=== PATIENT | female | born 1995 | race Caucasian/White ===

== ENCOUNTER 2024-09-05 10:19 | Emergency (ER) | payer BC, OTHER ==
[~2024-09-05] VITALS: Ht 162.6 cm; Wt 58.5 kg
[2024-09-05 10:44] VITALS: BP 156/68; PULSE 70; RESP 20; TEMP 97.9; O2SAT 98
--- NOTE | 2024-09-05 11:08 | DVH ---
CLINICAL INDICATION: Trauma; R/o fracture TECHNIQUE: 3 radiographic views of the right ankle were obtained. Comparison: None FINDINGS/IMPRESSION: There is no evidence of acute fracture or dislocation. The visualized joint space is well maintained. The alignment is anatomical. There is no radiopaque foreign body.
--- NOTE | 2024-09-05 11:28 | ED.PDOC ---
Musculoskeletal HPI Comments 29-year-old female presents with a chief complaint of a possible fracture to the right ankle. Still able to bear weight Denies previous surgeries to the ankle Denies redness or swelling around the ankle Denies fever chills night sweats nausea vomiting Chief Complaint: Lower Extremity Time Seen by MD: 10:28 Primary Care Provider: NONE Reviewed Notes: Nurses Notes, Medications, Allergies Allergies: Coded Allergies: Shellfish Allergy (Verified Allergy, Unknown, 09/05/24) Information Source: Patient Mode of Arrival: Ambulatory Past Medical History PAST MEDICAL HISTORY: Denies Surgical History: Denies all surgeries BUGGY LOADER History: No Pertinent BUGGY LOADER History Family History Family History: Reviewed,noncontributory to illness Social History Smoker: Non-Smoker Alcohol: Denies ETOH Use Drugs: Denies Drug Use All Other Systems: Reviewed and Negative (PER HPI) Physical Exam General Appearance: No Apparent Distress, Normal HEENT: Normal ENT Inspection, Pharynx Normal, TMs Normal Neck: Full Range of Motion, Non-Tender, Normal, Normal Inspection Respiratory: Chest Non-Tender, Lungs Clear, No Accessory Muscle Use, No Respiratory Distress, Normal Breath Sounds Cardiovascular: No Murmur, No Gallop, Regular Rate/Rhythm Breast Exam: Deferred Gastrointestinal: No Organomegaly, Non Tender, No Pulsatile Mass, Normal Bowel Sounds, Soft Genitalia: Deferred Pelvic: Deferred Rectal: Deferred Extremities: No calf tenderness, Normal capillary refill, Normal inspection, Normal range of motion, Non-tender, No pedal edema Musculoskeletal : Apperance: Normal Neurologic: Alert, No Motor Deficits, Normal Affect, Normal Mood, No Sensory Deficits Cerebellar Function: Normal Reflexes: Normal Skin: Dry, Normal Color, Warm Lymphatic: No Adenopathy Was a procedure done? Was a procedure done?: No Differential Diagnosis EXT Differential Diagnosis: Fracture, Sprain, Dislocation X-Ray, Labs, Meds, VS Vital Signs Date Time Temp Pulse Resp B/P (MAP) Pulse Ox O2 Delivery O2 Flow Rate FiO2 09/05/24 10:44 97.9 70 20 156/68 (97) 98 97.9 PATIENT: LY ROLDANACCT: [id number]: [id number] : 1995 LOC: ER ROOM / BED: / AGE / SEX: 29 / F ADM STATUS: REG ER SERVICE 1028 ORDERING PHYSICIAN: NIKKI TIJERINA NP PROCEDURE(s): RANKL - R ANKLE 3 VIEW REASON: R/o fracture ORDER NUMBER(s): [id number], ACCESSION NUMBER(s): [id number] CLINICAL INDICATION: Trauma; R/o fracture TECHNIQUE: 3 radiographic views of the right ankle were obtained. Comparison: None FINDINGS/IMPRESSION: There is no evidence of acute fracture or dislocation. The visualized joint space is well maintained. The alignment is anatomical. There is no radiopaque foreign body. ATED BY: MUMTAZ RIVERA MD DICTATED DATE/TIME: 09/05/24 110 SIGNED BY: MUMTAZ RIVERA MD SIGNED DATE/TIME: 09/05/241105 CC: X-Ray, Labs, Meds, VS Comment eloped Time of 1ST Reevaluation: 11:26 Reevaluation 1ST: Improved Patient Education/Counseling: Diagnosis, Treatment Family Education/Counseling: Diagnosis, Treatment Departure 1 Departure Time of Disposition: 13:33 Impression: Primary Impression: Eloped from emergency department Disposition: 07 LEFT AWOL/ELOPED Condition: Other Discharged With: Self Critical Care Note Critical Care Time?: No Stability Stability form required: No Heart Score Heart Score: Heart Score Response (Comments) Value History N/A 0 EKG N/A 0 Age N/A 0 Risk Factors N/A 0 Troponin N/A 0 Total 0 NIKKI TIJERINA NP September 05, 2024 11:28
== END 2024-09-05 12:09 | disposition left against medical advice (07) ==
LOC: ER 10:19
DX: Z04.3 Encounter for examination and observation following other accident (principal); Z91.013 Allergy to seafood
CPT/HCPCS: 73610

== ENCOUNTER 2025-03-03 07:32 | Outpatient (CLI) | payer BC ==
[2025-03-03 08:24] LABS: Urine Protein, UAD Negative (Negative)
[2025-03-03 08:31] LABS: Hematocrit 40.3 % (36.0-46.0); Hemoglobin 13.8 g/dL (12.2-16.2); Mean Corpuscular Hemoglobin 30.4 pg (28.0-32.0); Mean Corpuscular Volume 88.8 fL (80.0-100.0); Nucleated Red Blood Cells % 0.0 %
[2025-03-03 08:40] LABS: Alanine Aminotransferase 11 U/L (7-40); Alkaline Phosphatase 52 U/L (46-116); Anion Gap 8 (5-15); Calcium 9.4 mg/dL (8.7-10.4); Carbon Dioxide 28 mmol/L (20-31); Chloride 103 mmol/L (98-107); Glucose 93 mg/dL (74-106); Potassium 4.1 mmol/L (3.5-5.1); Sodium 139 mmol/L (136-145); Triglycerides 68 mg/dL (< 150)
[2025-03-03 08:41] LABS: Albumin 4.7 g/dL (3.2-4.8); BUN/Creatinine Ratio 13.8 (10.0-20.0); Bilirubin, Total 0.7 mg/dL (0.2-1.0); Blood Urea Nitrogen 11 mg/dL (9-23); Cholesterol 184 mg/dL (< 200); HDL Cholesterol 77 mg/dL (40-59); Total Protein 7.6 g/dL (5.7-8.2)
== END 2025-03-03 17:00 | disposition home or self-care (01) ==
LOC: LAB 07:32
PROVIDERS: ATTEND Internal Medicine
DX: Z13.1 Encounter for screening for diabetes mellitus (principal); Z00.01 Encounter for general adult medical examination with abnormal findings
CPT/HCPCS: 36415; 80053; 80061; 81001; 83036; 84443; 84481; 85025